=== PATIENT | female | born 1945 | race Hispanic/Latino ===

== ENCOUNTER 2016-12-12 13:53 | Outpatient (CLI) | payer MEDICARE ==
--- NOTE | 2016-12-12 16:31 | XRay Report ---
CHEST TWO VIEWS: 12/12/16 13:53:00 CLINICAL: Cough.Bronchitis. COMPARISON: 02/05/13 FINDINGS: Normal heart and pulmonary vasculature.Aortic ectasia and tortuosity are not significantly changed since the previous exam. The lungs are normally expanded and clear.The bones are unremarkable. Status post left mastectomy. IMPRESSION: No acute cardiopulmonary process.
== END 2016-12-12 13:54 | disposition home or self-care (01) ==
LOC: SPVIMAG 13:53
PROVIDERS: ATTEND Family Medicine Adult Medicine
DX: J40 Bronchitis, not specified as acute or chronic (principal); Z90.12 Acquired absence of left breast and nipple
CPT/HCPCS: 71020